=== PATIENT | female | born 1960 | race Caucasian/White ===

== ENCOUNTER 2023-08-16 10:00 | Outpatient (OUT) | payer MEDICARE, SELFPAY ==
[2023-08-16 10:22] LABS: Basophils Percent Auto 0.5 % (0.2-2.0); Eosinophils Absolute Auto 0.6 10^3/uL (0.0-0.7); Hematocrit 38.5 % (36.0-48.0); Hemoglobin 13.3 g/dL (12.0-16.0); Immature Granulocytes Abs Auto 0.01 10^3/uL (0.00-0.03); Immature Granulocytes Pct Auto 0.2 % (0.0-0.5); Lymphocytes Absolute Auto 1.6 10^3/uL (1.2-3.8); Lymphocytes Percent Auto 25.8 % (20.5-60.0); Mean Corpuscular HGB Conc 34.5 g/dL (29.9-35.2); Mean Corpuscular Hemoglobin 33.4 pg (26.7-34.0); Mean Corpuscular Volume 96.7 fL (81.0-99.0); Mean Platelet Volume 9.5 fL (9.5-13.5); Monocytes Absolute Auto 0.4 10^3/uL (0.3-0.8); Monocytes Percent Auto 6.5 % (1.7-12.0); Neutrophils Absolute Auto 3.6 10^3/uL (1.4-6.5); Platelet Count 258 10^3/uL (150-450); Red Blood Count 3.98 10^6/uL (4.20-5.40); Red Cell Distribution Width 11.8 % (11.0-15.0); White Blood Count 6.1 10^3/uL (4.0-11.0)
[2023-08-16 11:49] LABS: Anion Gap 12.8; BUN Creatinine Ratio 18.3; Calcium 8.7 mg/dL (8.5-10.1); Carbon Dioxide 28.7 mmol/L (21.0-32.0); Chloride 104 mmol/L (98-107); Estimated GFR (African America >60 (>=60); Estimated GFR (Non-African Ame >60 (>=60); Glucose 97 mg/dL (74-106); Potassium 4.5 mmol/L (3.5-5.1); Sodium 141 mmol/L (136-145)
== END 2023-08-16 10:01 | disposition home or self-care (01) ==
LOC: LAB 10:00
PROVIDERS: PCP Physician Assistant; Visit Provider Internal Medicine Interventional Cardiology
DX: Z01.818 Encounter for other preprocedural examination (principal)
CPT/HCPCS: 36415; 80048; 85025

== ENCOUNTER 2023-09-22 19:03 | Emergency (ER) | payer MEDICARE, SELFPAY ==
[2023-09-22] VITALS (16 sets, daily range): BP systolic 144–172; BP diastolic 73–106; PULSE 57–69; RESP 14–19; TEMP 36.7; O2SAT 98; BMI 29.4
--- OUTSIDE RECORDS SUMMARY | 2023-09-22 19:10 | XMS_ITS | CCD ---
Author Name Unknown Address [address] [place] [address] Organization [facility] Care Team Providers [employer] Name Role Phone NONE, XXXX Primary Care Physician Unavailab Tonya Hammer Referring Unavailable Tonya Gamble Admitting Unavailable Tonya Gamble Attending Unavailable HEMCHIO KOENIG Admitting Unavailable HEMCHIO KOENIG Attending Unavailable CHIO WISDOM Referring Unavailable HEMCHIO KOENIG Admitting Unavailable CHIO WISDOM Attending Unavailable INDERJIT Wisdom Primary Care Provider [phone] INDERJIT Wisdom Attending Provider DO Geovany Ling Referring Provider Geovany Ling Referring Unavailable Chio Wisdom Admitting Unavailable Chio Wisdom Primary Care Unavailable Chio Wsidom Attending Unavailable MINDYTAFRANCOIS BIRCH Attending Unavailable Medications Current Medications Medication Drug Class(es) Dates Sig (Normalized) Sig (Original) Calcium Citrate / Vitamin D (4 sources) Start: 11-15-2012 calcium-vitamin D Oral, Daily, Refill(s) 0, Prophylaxis Start Date: 11/15/12 Status: Ordered citalopram 10 mg oral tablet (4 sources) Serotonin Reuptake Inhibitor Start: 11-15-2012 take 1 tablet by mouth once daily CeleXA 10 mg Tab 10 mg = 1 tab(s), Oral, Daily, Refills(s) 0, Depression Start Date: 11/15/12 Status: Ordered Glucosamine & Chondroitin with MSM (4 sources) Start: 11-15-2012 take 1 tablet by mouth three times daily Glucosamine & Chondroitin with MSM 1 tab(s), Oral, TID, Refill(s) 0, Prophylaxis Start Date: 11/15/12 Status: Ordered [place]-3 (4 sources) Start: 11-15-2012 take 1000 mg by mouth once daily [place]-3 1,000 mg, Oral, Daily, Refill(s) 0, Prophylaxis Start Date: 11/15/12 Status: Ordered Problems Problem Classification Problem Date Documented Da te Episodic/Chronic Coronary atherosclerosis and other heart disease (2 sources) Other forms of angina pectoris; Translations: [Other forms of angina pectoris] Onset: 08-16-2023 Chronic Nonspecific chest pain (1 source) Chest pain, unspecified; Translations: [Chest pain, unspecified] Onset: 08-06-2023 Episodic Other screening for suspected conditions (not mental disorders or infectious disease) (2 sources) Abnormal result of other cardiovascular function study; Translations: [Abnormal result of other cardiovascular function study] Onset: 08-16-2023 Episodic Residual codes; unclassified (2 sources) Family history of ischemic heart disease and other diseases of the circulatory system; Translations: [Family history of ischemic heart disease and other diseases of the circulatory system] Onset: 08-16-2023 Episodic Results Test Name Value Interpretation Reference Range Facility Letter (Out)on 08-17-2023 Letter (Out) [id number] Daniella Glass 1960 Provider Department Center 08/17/2023 None-None [facility] AUTH NE Medical C Family History Problem Relation Age of Onset Coronary artery disease Mother Heart attack Father Family Status - Relation Status Age at Mother Father Normal [facility] Office Visiton 08-16-2023 Follow-up visit [id number] Daniella Glass 1960 Provider Department Center 08/16/2023 Dinah-FRANCOIS KUMARI BEN Schroeder Family History Problem Relation Age of Onset Coronary artery disease Mother Heart attack Father Family Status - Relation Status Age at Mother Father Level of Service:59041 MT OFFICE/OUTPATIENT NEW HIGH MDM 60-74 MINUTES Normal [facility] Orders Onlyon 08-16-2023 Orders Only [id number] Daniella Glass 1960 Date Provider Department Center 08/16/2023 STEFANO FAGAN BEN Sch[facility] Family History Problem Relation Age of Onset Coronary artery disease Mother Heart attack Father Family Status - Relation Status Age at Mother Father Normal [facility] NM alisa perf SPECT rest stron 08-07-2023 NM alisa perf SPECT rest str [facility] Main [address] [address] Nuclear Medicine Report Signed Patient: Daniella Glass MR#: [id number] : 1960 Acct:[id number] Age/Sex: 63 / F ADM Date: 08/06/23 Loc: EL [facility]: [facility] Att[facility] Dr: Chio Wisdom TRIAL JUDGE-C Copies to: ELLI Bocanegra MD Ordering Provider: Chio Wisdom PA-C Date of Service: 08/06/23 NM/NM alisa perf SPECT rest str: Abnormal EKG, chest pain REFERRING PHYSICIAN: Chio Wisdom NP REASON FOR STUDY: Abnormal EKG and chest pain. PROCEDURE: The patient underwent 2-day rest/stress protocol. Rest images obtained by injecting 29 mCi of Cardiolite. Stress images obtained by injecting 28.7 mCi of Cardiolite. Subsequently, gated SPECT and ejection fraction studies were performed. IMAGING RESULT: This appears to be a fair study. There is a very small mild reversible defect involving the distal anterolateral wall and apex suspicious of small area of mild distal anterolateral wall and apical ischemia. Left ventricular ejection fraction appears normal and calculated at 69%. TID index normal at 1.02. CONCLUSION: 1. Probable small mild ischemia of the distal anterolateral wall and apex. 2. No prior myocardial infarction. 3. Normal left ventricular systolic function and ejection fraction calculated at 69%. 4. No previous study available for comparison. Transcribed By: LEXY 08/07/23 1457 Dictated By: Niraj Davenport MD 08/07/23 1131 Signed By: 08/07/23 1741 Normal [facility] STR cardiac stress/lexiscano n 08-06-2023 STR cardiac stress/lexiscan [facility] Main [address] [address] Cardiac Stress Test Signed Patient: Daniella Glass MR#: [id number] : 1960 Acct:[id number] Age/Sex: 63 / F ADM Date: 08/06/23 Loc: EL Room: Type: REG CLI Attending Dr: Chio Wisdom TRIAL JUDGE-C Copies to: [facility] Niraj Davenport MD Ordering Provider: [facility] Date of Service: 08/06/23 STR/STR cardiac stress/lexiscan: R/o Ischemia REFERRING PHYSICIAN: Chio Wisdom PA-C REASON FOR STUDY: To assess for myocardial ischemia and ALEJANDRA patient complaining of chest pain. PROCEDURE: The patient underwent Lexiscan myocardial perfusion study. The patient was injected with 0.4 mg of Lexiscan, following which no symptoms reported. Blood pressure and heart response to Lexiscan was physiologic. Baseline ECG showed normal sinus rhythm. No ST-T changes. Following Lexiscan, no changes were seen. CONCLUSION: 1. Lexiscan Cardiolite stress test without diagnostic ST-T changes for ischemia. 2. No provoked chest pain or arrhythmia. 3. Appropriate hemodynamic response to Lexiscan. 4. Myocardial perfusion study will be dictated separately. Transcribed By: LEXY 08/06/23 1223 Dictated By: Niraj Davenport MD 08/06/23 1131 Signed By: 08/06/23 1343 [facility] BD Bone Density DEXAon 07-26 BD Bone Density DEXA Exam Date/Time: 07/25/2023 08:42 EST Reason for Exam: E28.39 Report IMPRESSION: BONE DENSITY IS WITHIN NORMAL LIMITS. The NOF/ISD guideline recommend FRAX for postmenopausal patients (not on treatment) if the lowest T-score for Spine(L1-L4), Femur Neck or Femur Total indicates low bone density (T score between -1.0 to -2.5, osteopenia). EXAM: BD Bone Density DEXA DATE: 07/25/2023 8:30 AM CLINICAL HISTORY: E28.39. COMPARISON: 01/27/2019. COMMENT: The lumbar spine and both hips were scanned. The mean bone mineral density from L1 to L4 is 1.206 g/cm2 and this value is 0.2 standard of deviation above the standard reference value for a young adult. Bone mineral density of the left femoral neck is 1.059 g/cm2 and this value is 0.2 standard of deviation above the standard reference value. Bone mineral density of the right femoral neck is 1.115 g/cm2 and this value is 0.6 standard of deviation above the standard reference value. These values are within the normal range. Compared to prior study, 2.6% increase in BMD of the lumbar spine, 6.4% decrease in BMD of the left femoral neck and 2.9% decrease in BMD of the right femoral neck. RECOMMENDATIONS: 1. All patients should optimize her calcium and vitamin D intake. 2. Consider FDA-approved medical therapies in postmenopausal women and minimal age 50 years and older, based on the following: - hip or vertebral (clinical or morphometric) fracture. - T-score less than or equal to -2.5 at the femoral neck or spine after the appropriate evaluation to exclude secondary causes. - Low bone density (T score between -1.0 and -2.5 at the femoral neck or spine) and a 10 year probability of hip fracture greater than or equal to 3% or a 10-year probability of a major osteoporosis-relate d fracture greater than or equal to 20% based on FRAX calculation. - Clinician judgment and/or patient preferences may indicate treatment for Report palpable attenuation fracture probability is above or below these levels. - Further guidance on treatment can be found at the National Osteoporosis Foundation's website: bonesource.org 3. Patients with diagnosis of osteoporosis or high risk for fracture. There are irregular bone mineral density tests. For patients eligible for Medicare, routine testing is allowed once every 2 years. Testing frequency can be increased to 1 year for patient's history of rapidly progressing disease, those who are receiving or discontinuing medical therapy to restore bone mass or have additional risk factors. Ordering Provider: , FINAL REPORT Dictated: 07/26/2023 4:58 pm Syed Brown MD Signed (Electronic Signature): 07/26/2023 4:58 pm Signed by: Syed Brown MD Transcribed by: PRIMITIVO Technologist: LAVERN Normal [facility] Consent for Treatmenton 07-11 Consent for Treatment [id number] 14#1.00TIFF Normal [facility] HCV RNA by PCR, Qn Rfx Genoo n 07-24-2023 HCV genotype SONAM+probe Nom COMMENT Invalid Interpretation Code [facility] Comment on above: Result Comment: Not indicated Performed at: [facility] [address] [place], [place] [id number] MD Alex Dos Santos Performed By: #### 2 754365, 2571416, 13193610, 3912105, 1319534830, 28651727, 7858624 #### [facility] Laboratory [address] [place] [address] HCV RNA SONAM+probe [Log units/Vol] COMMENT Invalid Interpretation Code [facility] Comment on above: Result Comment: Unab le to calculate result since non-numeric result obtained for component test. Performed By: #### 2 620957, 7512764, 76013720, 9301628, 4994943408, 89153620, 5961524 #### [facility] Laboratory [address] [place] [address] HCV RNA SONAM+probe Qn Not detected Invalid Interpretation Code [facility] Comment on above: Performed By: #### 2 036378, 4643583, 10153186, 7756349, 2852479869, 87819822, 1867430 #### [facility] Laboratory [address] [place] [address] Laboratory comment Rene (Report) Comment Invalid Interpretation Code [facility] Comment on above: Result Comment: The quantitative range of this assay is 15 IU/mL to 100 million IU/mL. Performed By: #### 2 712424, 9127043, 95519969, 4335317, 9297073898, 87586803, 4667530 #### [facility] [address] [place] [address] Physician Orderon 07-24-2023 Physician Order [id number] 1B#1.00TIFF Normal [facility] Auto Diffon 07-23-2023 Basophils/100 WBC (Bld) 0.3 % Normal 0.0-2.0 [facility] Comment on above: Order Comment: Order Added by Discern Expert. Performed By: #### 2 994564, 8497703, 29282709, 1574466, 8497698392, 56181265, 9775271 #### [facility] Laboratory [address] [place] [address] Basophils/Leukocytes Auto (Bld) [Pure # fraction] 0.0 E9/L Normal 0.0-0.2 [facility] Comment on above: Order Comment: Order Added by Discern Expert. Performed By: #### 2 816337, 5259489, 46209567, 7060261, 0727058383, 53740478, 2180577 #### [facility] Laboratory [address] [place] [address] Eosinophils/100 WBC (Bld) 10.6 % High 0.0-8.0 [facility] Comment on above: Order Comment: Order Added by Discern Expert. Performed By: #### 2 443707, 6787055, 53012803, 6058362, 1586079997, 12986743, 1295362 #### [facility] [address] [place] [address] Eosinophils/Leukocyte s Auto (Bld) [Pure # fraction] 0.6 E9/L High 0.0-0.5 [facility] Comment on above: Order Comment: Order Added by Discern Expert. Performed By: #### 2 472124, 0970142, 51515455, 6803845, 6657489673, 72699286, 4621251 #### [facility] [address] [place] [address] Lymphocytes/100 WBC (Bld) 25.8 % Normal 14.0-50.0 [facility] Comment on above: Order Comment: Order Added by Discern Expert. Performed By: #### 2 752210, 1315191, 14529764, 3756183, 1787133791, 03896282, 9806890 #### [facility] [address] [place] [address] Lymphocytes/Leukocyte s Auto (Bld) [Pure # fraction] 1.6 E9/L Normal 1.0-4.0 [facility] Comment on above: Order Comment: Order Added by Discern Expert. Performed By: #### 2 974224, 9463152, 98205421, 6996284, 6396032359, 97455548, 4016418 #### [facility] [address] [place] [address] Monocytes/100 WBC (Bld) 5.4 % Normal 4.0-14.0 [facility] Comment on above: Order Comment: Order Added by Discern Expert. Performed By: #### 2 994150, 5287780, 63966960, 0753164, 5936309349, 92687132, 2234249 #### [facility] Laboratory [address] [place] [address] Monocytes/Leukocytes Auto (Bld) [Pure # fraction] 0.3 E9/L Normal 0.2-1.0 [facility] Comment on above: Order Comment: Order Added by Discern Expert. Performed By: #### 2 928435, 6360617, 65107651, 2949228, 7403476643, 03631814, 4543429 #### [facility] Laboratory [address] [place] [address] Neutrophils/100 WBC (Bld) 57.9 % Normal 36.0-75.0 [facility] Comment on above: Order Comment: Order Added by Discern Expert. Performed By: #### 2 377354, 9196563, 79422902, 7660866, 7898822636, 41693492, 8838560 #### [facility] [address] [place] [address] Neutrophils/Leukocyte s Auto (Bld) [Pure # fraction] 3.5 E9/L Normal 2.0-7.5 [facility] Comment on above: Order Comment: Order Added by Discern Expert. Performed By: #### 2 721380, 9782995, 74046790, 2688896, 2356836259, 41892647, 3508907 #### [facility] [address] [place] [address] CBC w/ Auto Diffon 3 Erythrocyte distribution width (RBC) [Ratio] 12.6 % Normal 10.9-14.2 [facility] Comment on above: Performed By: #### 2 806013, 8685400, 80972141, 4659741, 3592889341, 71408610, 4174111 #### [facility] [address] [place] [address] Hematocrit (Bld) [Volume fraction] 40.6 % Normal 34.0-46.0 [facility] Comment on above: Performed By: #### 2 123507, 4760432, 18935927, 7644128, 9635550705, 95816157, 9600126 #### [facility] Laboratory [address] [place] [address] Hemoglobin (Bld) [Mass/Vol] 14.0 g/dL Normal 12.0-16.0 [facility] Comment on above: Performed By: #### 2 013366, 4805381, 26256627, 8219981, 9501631012, 41455043, 0257920 #### [facility] Laboratory [address] [place], [place] [address] MCH (RBC) [Entitic mass] 33.0 pg Normal 27.0-34.0 [facility] Comment on above: Performed By: #### 2 134878, 4190589, 94775738, 8523683, 9551257105, 59178756, 2861080 #### [facility] [address] [place] [address] MCHC (RBC) [Mass/Vol] 34.5 g/dL Normal 31.4-36.0 [facility] Comment on above: Performed By: #### 2 002412, 1284019, 29001579, 5895046, 9109478853, 67144246, 8420782 #### [facility] [address] [place] [address] MCV (RBC) [Entitic vol] 95.5 fL Normal 80.0-100.0 [facility] Comment on above: Performed By: #### 2 304070, 4124082, 35132960, 1350866, 4437113249, 29329499, 7514867 #### [facility] Laboratory [address] [place] [address] Platelet mean volume (Bld) [Entitic vol] 8.3 fL Normal 6.4-10.8 [facility] Comment on above: Performed By: #### 2 814216, 0783530, 07355911, 9217161, 2534669267, 58243331, 4928213 #### [facility] [address] [place] [address] Platelets (Bld) [#/Vol] 256.0 E9/L Normal 150.0-500.0 [facility] Comment on above: Performed By: #### 2 099017, 8717193, 65430153, 8297783, 2872758157, 43597743, 7042474 #### [facility] [address] [place] [address] RBC (Bld) [#/Vol] 4.2 E12/L Low 4.3-5.9 [facility] Comment on above: Performed By: #### 2 659452, 6998925, 12508825, 0650714, 5552815200, 70906263, 8014661 #### [facility] [address] [place] [address] WBC corrected for nucl RBC Auto (Bld) [#/Vol] 6.1 E9/L Normal 4.0-11.0 [facility] Comment on above: Result Comment: Slid e reviewed by BC. Performed By: #### 2 559712, 8799999, 83867118, 3498662, 2253747435, 17097626, 9678025 #### [facility] [address] [place] [address] CHEMISTRYOrdered By: SYSTEM SYSTEM on 07-23-2023 Albumin [Mass/Vol] 4.1 g/dL Normal 3.3 - 5.0 gm/dL [facility] Albumin/Globulin [Mass ratio] 1.4 {ratio} Normal 1.1 - 2.2 [facility] ALP [Catalytic activity/Vol] 94 [iU]/d Normal 21 - 98 Int._Unit/L [facility] ALT No additional P-5'-P [Catalytic activity/Vol] 19 [iU]/d Normal 6 - 46 Int._Unit/L [facility] Anion gap [Moles/Vol] 9 mmol/L Normal 6 - 16 mEq/L [facility] AST [Catalytic activity/Vol] 18 [iU]/d Normal 5 - 43 Int._Unit/L [facility] Bilirubin [Mass/Vol] 0.8 mg/dL Normal 0.0 - 1 .1 mg/dL [facility] Calcium [Mass/Vol] 9.3 mg/dL Normal 8.9 - 11. 1 mg/dL [facility] Chloride [Moles/Vol] 108 mmol/L Normal 101 - 1 11 mmol/L [facility] Cholesterol [Mass/Vol] 174 mg/dL Normal 120 - 200 mg/dL [facility] Cholesterol in HDL [Mass/Vol] 46 mg/dL Invalid Interpretation Code [facility] Comment on above: Interpretive Data: H DL > or equal to 60 mg/dL: Low cardiovascular risk HDL < 40 mg/dL : High cardiovascular risk Cholesterol in LDL [Mass/Vol] 110 mg/dL Normal <=129mg/dL [facility] Cholesterol in VLDL [Mass/Vol] 18 mg/dL Normal 7 - 40 mg/dL [facility] CO2 [Moles/Vol] 28 mmol/L Normal 21 - 31 mmol/L [facility] Creatinine [Mass/Vol] 0.7 mg/dL Normal 0.5 - 1.3 mg/dL [facility] GFR/1.73 sq M.predicted among non-blacks MDRD (S/P/Bld) [Vol rate/Area] 96 mL/min/1.73 m2 Normal >=59mL/min/1. 73 m2 [facility] Comment on above: Interpretive Data: C hronic kidney disease could be indicated at eGFR's of less than 60 mL/min/1.73m2. Kidney failure is indicated at less than 15 mL/min/1.73m2. Globulin (S) [Mass/Vol] 3.0 g/dL Normal 1.4 - 4.0 gm/dL [facility] Glucose [Mass/Vol] 97 mg/dL Normal 55 - 199 mg/dL [facility] Comment on above: Interpretive Data: I f this glucose result represents a fasting glucose, interpretation should refer to the following reference range: 55-99 mg/dL Potassium [Moles/Vol] 4.1 mmol/L Normal 3.5 - 5.3 mmol/L [facility] Protein [Mass/Vol] 7.1 g/dL Normal 6.0 - 7.8 gm/dL [facility] Sodium [Moles/Vol] 141 mmol/L Normal 135 - 145 mmol/L [facility] Triglyceride [Mass/Vol] 90 mg/dL Normal <=149mg/dL [facility] TSH Qn 1.48 m[IU]/L Normal 0.34 - 5.60 mcIU/mL [facility] Urea nitrogen [Mass/Vol] 18 mg/dL Normal 5 - 21 mg/dL [facility] Urea nitrogen/Creatinine [Mass ratio] 26 mg/mg High 10 - [facility] CMPon 07-23-2023 Albumin [Mass/Vol] 4.1 g/dL Normal 3.3-5.0 [facility] Comment on above: Performed By: #### 2 123057, 4228949, 31614440, 0639619, 5003007425, 51127047, 1403812 #### [facility] Laboratory [address] [place] [address] Albumin/Globulin (S) [Mass conc ratio] 1.4 Normal 1.1-2.2 [facility] Comment on above: Performed By: #### 2 006140, 8271032, 48470355, 1850465, 7144749395, 60566204, 6628322 #### [facility] Laboratory [address] [place] [address] ALP [Catalytic activity/Vol] 94 Int._Unit/L Normal 21-98 [facility] Comment on above: Performed By: #### 2 160961, 6692923, 47254115, 8914097, 8732283601, 50964114, 9714885 #### [facility] [address] [place] [address] ALT No additional P-5'-P [Catalytic activity/Vol] 19 Int._Unit/L Normal 6-46 [facility] Comment on above: Performed By: #### 2 034388, 6794495, 38820033, 1850287, 0361357549, 69117955, 7906830 #### [facility] [address] [place] [address] Anion gap [Moles/Vol] 9 mmol/L Normal 6-16 [facility] Comment on above: Performed By: #### 2 306942, 1677748, 40165316, 3248603, 4214337874, 19174646, 9228752 #### [facility] [address] [place] [address] AST [Catalytic activity/Vol] 18 Int._Unit/L Normal 5-43 [facility] Comment on above: Performed By: #### 2 941101, 4130863, 53661797, 4886704, 6843248866, 44647040, 4344047 #### [facility] [address] [place] [address] Bilirubin [Mass/Vol] 0.8 mg/dL Normal 0.0-1.1 [facility] Comment on above: Performed By: #### 2 186704, 6011538, 08484789, 4753992, 9931770121, 44187229, 5371894 #### [facility] [address] [place] [address] Calcium [Mass/Vol] 9.3 mg/dL Normal 8.9-11.1 [facility] Comment on above: Performed By: #### 2 542954, 5402267, 14849855, 8616540, 3956489283, 99940851, 4416862 #### [facility] [address] [place] [address] Chloride [Moles/Vol] 108 mmol/L Normal 101-111 [facility] Comment on above: Performed By: #### 2 511565, 2793245, 00472931, 4473969, 4719159815, 76707105, 4079647 #### [facility] [address] [place] [address] CO2 [Moles/Vol] 28 mmol/L Normal 21-31 [facility] Comment on above: Performed By: #### 2 542428, 6414512, 95523795, 4546341, 5076974614, 23926841, 6928863 #### [facility] [address] [place] [address] Creatinine [Mass/Vol] 0.7 mg/dL Normal 0.5-1.3 [facility] Comment on above: Performed By: #### 2 949128, 0706439, 03026715, 6197498, 7452645353, 15145202, 5100686 #### [facility] [address] [place] [address] Globulin (S) [Mass/Vol] 3.0 g/dL Normal 1.4-4.0 [facility] Comment on above: Performed By: #### 2 735952, 7081752, 60365935, 1112596, 6373015833, 70691927, 3494468 #### [facility] [address] [place] [address] Glucose [Mass/Vol] 97 mg/dL Normal 55-199 [facility] Comment on above: Result Comment: If t his glucose result represents a fasting glucose, interpretation should refer to the following reference range: 55-99 mg/dL Performed By: #### 2 951730, 0548522, 86467774, 1701155, 7091927285, 86690069, 2829788 #### [facility] [address] [place] [address] Potassium [Moles/Vol] 4.1 mmol/L Normal 3.5-5.3 [facility] Comment on above: Performed By: #### 2 911974, 8345286, 59231376, 8931678, 1377296716, 06727992, 8764412 #### [facility] [address] [place] [address] Protein [Mass/Vol] 7.1 g/dL Normal 6.0-7.8 [facility] Comment on above: Performed By: #### 2 940243, 2865833, 72168052, 5071598, 0560373414, 69782736, 4906727 #### [facility] [facility] [address] [place] [address] Sodium [Moles/Vol] 141 mmol/L Normal 135-145 [facility] Comment on above: Performed By: #### 2 [id number], [id number], [id number], [id number], [id number], [id number], [id number] #### [facility] [address] [place] [address] Urea nitrogen [Mass/Vol] 18 mg/dL Normal 5-21 [facility] Comment on above: Performed By: #### 2 390078, 1452466, [id number], 8344657, [id number], [id number], [id number] #### [facility] [address] [place] [address] Urea nitrogen/Creatinine [Mass ratio] 26 No Units High 10-20 [facility] Comment on above: Performed By: #### 2 355314, 3839726, [id number], 3186479, [id number], 29102477, [id number] #### [facility] [address] [place] [address] Consent for Treatmenton 07-11 Consent for Treatment [id number] 6E#1.00TIFF Normal [facility] HEMATOLOGYOrdered By: SYSTEM SYSTEM on 07-23-2023 Basophils/100 WBC (Bld) 0.3 % Normal 0.0 - 2.0 % [facility] Basophils/Leukocytes Auto (Bld) [Pure # fraction] 0.0 E9/L Normal 0.0 - 0.2 E9/L [facility] Eosinophils/100 WBC (Bld) 10.6 % High 0.0 - 8.0 % [facility] Eosinophils/Leukocyte s Auto (Bld) [Pure # fraction] 0.6 E9/L High 0.0 - 0.5 E9/L [facility] Lymphocytes/100 WBC (Bld) 25.8 % Normal 14.0 - 50.0 % [facility] Lymphocytes/Leukocyte s Auto (Bld) [Pure # fraction] 1.6 E9/L Normal 1.0 - 4.0 E9/L [facility] Monocytes/100 WBC (Bld) 5.4 % Normal 4.0 - 14.0 % [facility] Monocytes/Leukocytes Auto (Bld) [Pure # fraction] 0.3 E9/L Normal 0.2 - 1.0 E9/L [facility] Neutrophils/100 WBC (Bld) 57.9 % Normal 36.0 - 75.0 % [facility] Neutrophils/Leukocyte s Auto (Bld) [Pure # fraction] 3.5 E9/L Normal 2.0 - 7.5 E9/L [facility] HEMATOLOGYOrdered By: Amy Albarran on 07-23-2023 Erythrocyte distribution width (RBC) [Ratio] 12.6 % Normal 10.9 - 14.2 % [facility] Hematocrit (Bld) [Volume fraction] 40.6 % Normal 34.0 - 46.0 % [facility] Hemoglobin (Bld) [Mass/Vol] 14.0 g/dL Normal 12.0 - 16.0 gm/dL [facility] MCH (RBC) [Entitic mass] 33.0 pg Normal 27.0 - 34.0 pg [facility] MCHC (RBC) [Mass/Vol] 34.5 g/dL Normal 31.4 - 36.0 gm/dL [facility] MCV (RBC) [Entitic vol] 95.5 fL Normal 80.0 - 100.0 fL [facility] Platelet mean volume (Bld) [Entitic vol] 8.3 fL Normal 6.4 - 10.8 fL [facility] Platelets (Bld) [#/Vol] 256.0 E9/L Normal 150.0 - 500.0 E9/L [facility] RBC (Bld) [#/Vol] 4.2 E12/L Low 4.3 - 5.9 E12/L [facility] WBC corrected for nucl RBC Auto (Bld) [#/Vol] 6.1 E9/L Normal 4.0 - 11.0 E9/L [facility] Comment on above: Result Comment: Slid e reviewed by BC. Lipid Panelon 07-23-2023 Cholesterol [Mass/Vol] 174 mg/dL Normal 120-200 [facility] Comment on above: Performed By: #### 2 385300, 5963708, 92443434, 6810028, [id number], [id number], [id number] #### [facility] [address] [place] [address] Cholesterol in HDL [Mass/Vol] 46 mg/dL Invalid Interpretation Code [facility] Comment on above: Result Comment: HDL > or equal to 60 mg/dL: Low cardiovascular risk HDL < 40 mg/dL : High cardiovascular risk Performed By: #### 2 722046, 5610776, 75524040, 4125899, [id number], [id number], 3846326 #### [facility] [address] [place] [address] Cholesterol in LDL [Mass/Vol] 110 mg/dL Normal <=129 [facility] Comment on above: Performed By: #### 2 756838, 4900875, 12204131, 4558032, [id number], [id number], 0964793 #### [facility] [address] [place] [address] Cholesterol in VLDL [Mass/Vol] 18 mg/dL Normal 7-40 [facility] Comment on above: Performed By: #### 2 416570, 6515550, 51940385, 8326860, [id number], 42235717, 5847219 #### [facility] [address] [place] [address] Triglyceride [Mass/Vol] 90 mg/dL Normal <=149 [facility] Comment on above: Performed By: #### 2 090030, 7389018, 47968340, 6591107, [id number], 69312982, 5160811 #### [facility] [address] [place] [address] Physician Orderon 07-23-2023 Physician Order [id number]#1.00TIFF Normal [facility] TSH With T4fr Reflexon 07-23 TSH Qn 1.48 m[IU]/L Normal 0.34-5.60 [facility] Comment on above: Performed By: #### 2 136488, 8898615, 07244105, 6422776, [id number], 51822520, 4623245 #### [facility] [address] [place] [address] eGFRon 07-23-2023 GFR/1.73 sq M.predicted among non-blacks MDRD (S/P/Bld) [Vol rate/Area] 96 mL/min/1.73 m2 Normal >=59 [facility] Comment on above: Order Comment: Order added by Discern Expert. Result Comment: Customer Marketing Assistant taylor kidney disease could be indicated at eGFR's of less than 60 mL/min/1.73m2. Kidney failure is indicated at less than 15 mL/min/1.73m2. Performed By: #### 2 885120, 5513912, 07271384, 8829962, [id number], [id number], 7795129 #### [facility] [address] [place] [address] MA Mamm Screen w/CAD if perf and 3D Bilon 03-12-2023 MA Mamm Screen w/CAD if perf and 3D Andrew Exam Date/Time: 03/09/2023 08:17 EDT Reason for Exam: SCREENING Report IMPRESSION: BIRADS 1 NEGATIVE, NORMAL INTERVAL FOLLOW-UP. EXAMINATION: MA Mamm Screen w/CAD if perf and 3D Andrew CLINICAL HISTORY: SCREENING COMPARISON: Priors dating back to 2017. RESULT: Digital mammography and 3D tomosynthesis of bilateral breasts was performed. The breasts are heterogenously dense which may obscure small masses. There is no suspicious mass, asymmetry, architectural distortion, or calcification. CAD analysis was performed and used in the interpretation. Dense Breast: Yes Follow-up: 12 MONTH RECALL. Board Certified Radiologists. Accredited by the ACR and FDA. MAMMOGRAPHY IS VERY IMPORTANT TO YOUR HEALTH. THE [employer]IET[employer] GUIDELINES RECOMMEND THAT WOMEN 40 YEARS OF AGE AND OLDER SHOULD HAVE A MAMMOGRAM EVERY YEAR. A REMINDER LETTER WILL BE SENT AT THE APPROPRIATE TIME. THIS FACILITY UTILIZES A REMINDER SYSTEM TO ENSURE ALL PATIENTS RECEIVE REMINDER NOTIFICATIONS AT THE APPROPRIATE TIME BASED ON THE RECOMMENDATIONS OF THIS EXAM. THIS INCLUDES REMINDERS FOR ROUTINE SCREENING MAMMOGRAMS, DIAGNOSTIC MAMMOGRAMS IN WHICH THE PATIENT IS ASKED TO RETURN FOR ADDITIONAL VIEWS, OR OTHER BREAST IMAGING INTERVENTIONS WHEN APPROPRIATE. THE PATIENT WILL BE PLACED IN THE APPROPRIATE REMINDER SYSTEM INCLUDING A REMINDER AT THE APPROPRIATE TIME FOR ANY PENDING ADDITIONAL VIEWS. Ordering Provider: Tonya Gamble FINAL REPORT Dictated: 03/12/2023 2:36 pm Syed Brown MD Signed (Electronic Signature): 03/12/2023 2:36 pm Signed by: Syed Brown MD Transcribed by: PRIMITIVO Technologist: KAREN Assessment: BI-RADS Category 1-Negative Recommendation: Normal interval follow-up [facility] Consent for Treatmenton 02-10 Consent for Treatment [id number] A6#1.00CD:127 [facility] Physician Orderon 02-26-2023 Physician Order [id number] 5#1.00CD:127 [facility] Vital Signs Date Time Vital Sign Value Performing Clinician Sydni cifuentes 08-06-2023 10:15-0500 Diastolic blood pressure 91 mm[Hg] TRIAL JUDGE-C Chio Wisdom Work Phone: [facility] 08-06-2023 10:15-0500 Heart rate 67 /min TRIAL JUDGE-C Chio Quezadamer Work Phone: [facility] 08-06-2023 10:15-0500 Systolic blood pressure 138 mm[Hg] TRIAL JUDGE-C Chio Hemmer Work Phone: [facility] 08-06-2023 09:58-0500 Body height 177.8 cm TRIAL JUDGE-Maynak Quezadamer Work Phone: [facility] 08-06-2023 09:58-0500 Body weight 93.44 kg TRIAL JUDGE-C Chio Wisdom Work Phone: [facility] Encounters Encounter Date Encounter Type Care Provider Facility Start: 08-16-2023 End: 08-16-2023 ambulatory EHAB [facility] Start: 08-06-2023 End: 08-06-2023 ambulatory Geovany Ling Facility:[facility] Start: 08-06-2023 End: 08-06-2023 ambulatory TRIAL JUDGE-C Chio Quezadamer Work Phone: [facility] Work Phone: Start: 08-06-2023 End: 08-06-2023 Patient encounter procedure TRIAL JUDGE-C Chio Quezadamer Work Phone: [facility] Work Phone: Start: 07-25-2023 End: 07-26-2023 ambulatory CHIO WISDOM [place] [place]: 07-25-2023 End: 07-25-2023 Patient encounter procedure CHIO WISDOM [facility] Start: 07-23-2023 End: 07-24-2023 ambulatory CHIO WISDOM [place] [place] Start: 07-23-2023 End: 07-23-2023 Patient encounter procedure CHIO WISDOM [facility] Start: 03-09-2023 End: 03-10-2023 ambulatory Tonya Gamble [place] [place] Start: 03-09-2023 End: 03-09-2023 Patient encounter procedure Tonya Bakere [facility] Start: 03-06-2022 End: 03-06-2022 Patient encounter procedure Tonya Bakere [facility] Plan of Treatment Date Care Activity Detail Author Start: 08-06-2023 Radionuclide myocard ial perfusion stress study NM alisa perf SPECT rest & str [facility] Start: 08-06-2023 SPECT Heart perfusio n at rest and W stress and W radionuclide IV [facility] Immunizations Immunization Date Immunization Notes Care Provider Gasper camilo 04-14-2019 zoster vaccine recombinant Tonya Tye [facility] 02-04-2019 zoster vaccine, live Tonya Tye [facility] Payers Date Payer Category Payer Self-pay [id number] 2023 Unknown [id number] 1960 Unknown [id number] [id number] [id number] 1960 Unknown [id number] 2.16.8 [id number] 1960 Unknown [id number] 2.16.8 [id number] Unknown [employer] BC/BS [id number] Unknown [id number] 2.16.8 [id number] Social History Date Type Detail Facility Tobacco smoking status No Smokin g Status Entered [facility] Sex Assigned At Female [facility] Tobacco smoking status No Smokin g Status Entered [facility] Start: 1960 Sex Assigned At Female F [facility] Progress note 08-16-2023 Note Date & Type Note Facility 08-16-2023 Note [facility] Cardiology Clinic Note Chief Complaint: New patient here to establish care. Ref from Chio Wisdom CNP for abnormal stress test done at [facility]. She has no prior history. Mother and father both had CAD/ME. She has left-sided chest pain, which she describes as feeling like a pulled muscle . Denies SOB, palpitations, and LE edema. HPI: Daniella Glass is a 63 y.o. female With a family history of premature coronary artery disease; her mother at the age of 52, heart attack here for an abnormal stress test. Over the past several weeks, she has noticed retrosternal, left-sided chest pain that feels like a muscle pull . She initially thought it was related to episodic coughing beforehand. No precipitating or relieving factors. No associated shortness of breath. No orthopnea, no paroxysmal, dyspnea, no lower extremity edema. Her family physician ordered a stress test. This was abnormal. Cardiology ROS: Review of Systems Cardiovascular: Positive for chest pain. Musculoskeletal: Positive for arthritis. All other systems reviewed and are negative. Past Medical History She has no past medical history on file. Surgical History She has no past surgical history on file. Social History She has no history on file for tobacco use, alcohol use, and drug use. Family History No family history on file. Allergies Patient has no allergy information on record. Medications No current outpatient medications on file. Last Recorded Vitals BP 118/80 (BP Location: Left arm, Patient Position: Sitting) Pulse 64 Ht 1.778 m (5' 10 ) Wt 94.3 kg (208 lb) SpO2 97% BMI 29.84 kg/m??? Physical Examination: GENERAL: alert and oriented x3, well developed, in no acute distress. HEAD: atraumatic, normocephalic. EYES: NAY, EOMI. NECK: trachea midline, no JVD present, no carotid bruits present. CARDIAC: S1, S2 present. RRR. No murmur, rubs, or gallops. RESPIRATORY: CTAB, no increased effort of breathing, no rales, rhonchi, or wheezing. ABDOMEN: soft, nontender, nondistended. EXTREMITIES: no lower extremity edema, peripheral pulses are 2+ bilaterally. No rash/skin discoloration present. NEURO: strength/sensation equal and symmetric in bilateral upper and lower extremities. PSYCH: appropriate mood, affect, and judgement. Stress test 08/06/2023 Probable small, mild ischemia of the distal anterolateral wall and apex No prior myocardial infarction Normal left ventricular systolic function with an ejection fraction calculated at 69% No transient ischemic dilatation Assessment: Chest pain Family history premature coronary artery disease Abnormal stress test; Anterolateral and apical ischemia suspicious for LAD stenosis Plan: We discussed the options given her abnormal stress test; the patient is very concerned about any form of exercise given the abnormal stress test and her family history. While her pain sounds relatively atypical, we agreed to proceed with invasive coronary angiography. Will schedule her for coronary angiography via left radial approach in the coming 1 to 2 weeks. Further recommendations pending testing. Francois Kumari MD, MPH, [facility], [facility], [facility] Interventional Cardiology Pager Email: [email or web address] Evaluation + Plan note 07-23-2023 Note Date & Type Note Facility 07-23-2023 Evaluation + Plan note Diagnostic Tests PendingHCV RNA by PCR, Qn Rfx Ame 07/23/23 [facility] Evaluation + Plan note Note Date & Type Note Facility Evaluation + Plan note No data available for this section [facility] Evaluation note Note Date & Type Note Facility Evaluation note No assessment information availa [facility] Work Phone: Hospital Discharge instructions Note Date & Type Note Facility Hospital Discharge instructions No data available for this section [facility] Progress note Note Date & Type Note Facility Progress note No data available for this section [facility] Summary Purpose Family History No Family History Records Found Advance Directives No Advanced Directives Records Found Advance Directive Response Recorded Date/ Time Advance Directives No December 30, 019 5:01pm Chief Complaint and Reason for Visit Chief Complaint R94.31 R07.9 Additional Source Comments INFORMATION SOURCE (unrecogn ized section and content) DATE CREATED AUTHOR 07/26/2023 [facility] DATE CREATED AUTHOR AUTHOR'S ORGANIZ ATION 08/12/2023 [facility] DATE CREATED AUTHOR AUTHOR'S ORGANIZ ATION 08/18/2023 [facility] Care Teams (unrecognized sec tion and content) Team Status: Active Member Role Status Dates Chio Wisdom NP-Mayank Primary Care Provider Active Team Status: Inactive Member Role Status Dates INDERJIT An Primary Care Provider, Attending Baron aquino Active W Zack Ling DO Referring Provider Active Goals (unrecognized section and content) Goals may be documented in a n alternate section FOR RECORDS PERTAINING TO PATIENTS WHO ARE OR HAVE BEEN ENROLLED IN A CHEMICAL DEPENDENCY/SUBSTANCEABUSE PROGRAM, SOME INFORMATION MAY BE OMITTED. This clinical summary was aggregated from multiple sources. Caution should be exercised in using it in the provision of clinical care. This summary normalizes information from multiple sources, and as a consequence, information in this document may materially change the coding, format and clinical context of patient data. In addition, data may be omitted in some cases. CLINICAL DECISIONS SHOULD BE BASED ON THE PRIMARY CLINICAL RECORDS. [facility] [facility]. provides no warranty or guarantee of the accuracy or completeness of information in this document.
--- NOTE | 2023-09-22 19:16 | ECG_ITS ---
[facility] Test Date: 2023-09-22 Pat Name: CLAUDIA GLASS Department: Room: - Gender: Female Claim Technician: : 1960 Requested By: [id number] Order Number: [id number] Reading MD: GREG CALLOWAY Measurements Intervals [place] Rate: 57 P: 50 VA: 196 QRS: 77 QRSD: 84 T: 65 QT: 420 QTc: 414 Interpretive Statements 1100 Sinus rhythm 2420 RSR (QR) in lead V1/V2, consistent with right ventricular conduction delay 9130 borderline ECG No previous ECG available for comparison Electronically Signed On 09-23-2023 9:23:13 EST by GREG CALLOWAY
--- NOTE | 2023-09-22 19:16 | XR_ITS ---
The [address] [address] Patient Name: CLAUDIA GLASS MRN: [id number] date: 1960 Sex: F Assigned Patient Location: ER Current Patient Location: ER Accession/Order Number: [id number] Exam Date: 09/22/2023 19:45 Report Date: 09/22/2023 20:17 At the request of: CONSTANCE PRESSLEY Procedure: XR chest 1V EXAM: XR chest 1V HISTORY: HTN COMPARISON: None. TECHNIQUE: Single AP radiograph of the chest FINDINGS: No pneumothorax, pleural effusion or consolidation. Normal heart size. No acute osseous abnormality. XR/XR chest 1V IMPRESSION: No acute cardiopulmonary process. Electronically authenticated by: DEEPA KIDD Date: 09/22/2023 20:17
--- NOTE | 2023-09-22 19:18 | ED.GENADUL1 ---
HPI - General Adult General Chief complaint: Headache Stated complaint: HYPERTENSION, UNABLE TO GET LOWER Time Seen by Provider: 09/22/23 19:12 Source: patient Mode of arrival: walk-in History of Present Illness HPI narrative: 63 year old female presents to the ED for elevated blood pressure. States her BP was elevated last night when she checked it in the evening. It has continued to be elevated all day today. She checks her BP at home daily with her who has hx HTN. The patient does not take medication for her BP. Reports head pressure. Denies dizziness, vision changes, CP, SOB. Denies back and abd pain. Rates her pain 0/10. She has her BP log with her from the past few weeks. Her systolic BP typically runs between 130-155 and diastolic in the 80s. Related Data Home Medications Medication Instructions Recorded Confirmed citalopram 40 mg tablet mg 09/22/23 Previous Rx's Medication Instructions Recorded amlodipine 5 mg tablet (Norvasc) 5 mg PO DAILY #14 tabs 09/22/23 Allergies Allergy/AdvReac Type Severity Reaction Status Date / Time No Known Drug Allergies Allergy Verified 09/22/23 19:07 Review of Systems ROS Constitutional Denies: fever or chills Eyes Denies: change in vision or blurry vision Ears, nose, mouth, and throat Denies: neck pain Cardiovascular Denies: chest pain, palpitations or edema Respiratory Denies: shortness of breath or cough Gastrointestinal Denies: abdominal pain, nausea or vomiting Musculoskeletal Denies: back pain or neck pain Neurological Denies: numbness in extremities, weakness in extremities, lack of coordination, dizziness, confusion or slurred speech PFSH PFSH Social History Smoking status: Never smoker Exam Constitutional Vital Signs, click to edit/add: Last Vital Signs Temp 98.1 F 09/22/23 19:07 Pulse 60 09/22/23 21:00 Resp 19 09/22/23 21:00 BP 144/84 H 09/22/23 21:00 Pulse Ox 98 09/22/23 19:07 Common normals: no apparent distress and oriented x3 General appearance: cooperative; not ill appearing HENMT Nose: external nose normal Mouth: oral and palatal mucosa normal and lip normal Eye Common normals: PERRL, conjunctivae normal and no scleral icterus Neck & C-Spine Common normals: supple and no JVD Chest Chest: symmetrical chest wall rise Respiratory Common normals: normal respiratory effort Effort & inspection: able to speak in complete sentences and symmetric chest movement Auscultation: clear to auscultation bilaterally Cardio Common normals: regular rate and regular rhythm Neuro Common normals: oriented x3 and CN's II-XII intact bilaterally Sensorium/orientation: awake and alert Speech: speech normal Gait (neuro): normal gait Course Vital Signs Vital signs: Vital Signs Temperature 98.1 F 09/22/23 19:07 Pulse Rate 66 09/22/23 19:07 Respiratory Rate 16 09/22/23 19:07 Blood Pressure 172/106 H 09/22/23 19:07 Pulse Oximetry 98 09/22/23 19:07 Temperature 98.1 F 09/22/23 19:07 Pulse Rate 60 09/22/23 21:00 Respiratory Rate 19 09/22/23 21:00 Blood Pressure 144/84 H 09/22/23 21:00 Pulse Oximetry 98 09/22/23 19:07 Medical Decision Making MDM Narrative Medical decision making narrative: Laboratory studies were unremarkable. Imaging was negative for acute findings. She was given Hydralazine with improvement in her BP and head pressure. She has an appointment scheduled for follow up. A prescription was provided for Norvasc. Follow up with pcp for a recheck, furhter evaluation and treatment. Medical Records Medical records reviewed: Yes I reviewed the patient's medical records Lab Data Lab results reviewed: Yes I reviewed the patient's lab results Labs: Lab Results 09/22/23 Range/Units 19:30 WBC 8.0 (4.0-11.0) 10^3/uL RBC 4.45 (4.20-5.40) 10^6/uL Hgb 14.6 (12.0-16.0) g/dL Hct 42.2 (36.0-48.0) % MCV 94.8 (81.0-99.0) fL MCH 32.8 (26.7-34.0) pg MCHC 34.6 (29.9-35.2) g/dL RDW 11.6 (11.0-15.0) % Plt Count 285 (150-450) 10^3/uL MPV 9.4 L (9.5-13.5) fL Neut % (Auto) 56.8 (43.0-75.0) % Lymph % (Auto) 28.1 (20.5-60.0) % [place] % (Auto) 5.8 (1.7-12.0) % Eos % (Auto) 8.5 H (0.9-7.0) % Baso % (Auto) 0.5 (0.2-2.0) % Neut # (Auto) 4.5 (1.4-6.5) 10^3/uL Lymph # (Auto) 2.2 (1.2-3.8) 10^3/uL [place] # (Auto) 0.5 (0.3-0.8) 10^3/uL Eos # (Auto) 0.7 (0.0-0.7) 10^3/uL Baso # (Auto) 0.0 (0.0-0.1) 10^3/uL Abs Immat Gran (auto) 0.02 (0.00-0.03) 10^3/uL Imm/Tot Granulo (auto) 0.3 (0.0-0.5) % Sodium 141 (136-145) mmol/L Potassium 4.1 (3.5-5.1) mmol/L Chloride 104 (98-107) mmol/L Carbon Dioxide 27.4 (21.0-32.0) mmol/L Anion Gap 13.7 BUN 13.0 (7.0-18.0) mg/dL Creatinine 0.77 (0.55-1.02) mg/dL Est GFR ( Amer) >60 (>=60) Est GFR (Non-Af Amer) >60 (>=60) BUN/Creatinine Ratio 16.9 Glucose 96 (74-106) mg/dL Calcium 9.0 (8.5-10.1) mg/dL Troponin I High Sens 18.8 (4.0-51.3) pg/mL Imaging Data Chest x-ray: Attestation: I have reviewed the pertinent imaging results. Radiologist's impression: ITS Impressions Chest X-Ray 09/22/23 19:16 IMPRESSION: No acute cardiopulmonary process. Electronically authenticated by: DEEPA KIDD Date: 09/22/2023 20:17 Procedure: XR chest 1V EXAM: XR chest 1V HISTORY: HTN COMPARISON: None. TECHNIQUE: Single AP radiograph of the chest FINDINGS: No pneumothorax, pleural effusion or consolidation. Normal heart size. No acute osseous abnormality. XR/XR chest 1V IMPRESSION: No acute cardiopulmonary process. Electronically authenticated by: DEEPA KIDD Date: 09/22/2023 20:17 ECG Data Attestation: ?I have reviewed the pertinent ECG results. (EKG was reviewed by the attending physician. It showed sinus rhythm at a rate of [address] segment changes. ) Interpretation: Measurements Intervals [place] Rate: 57 P: 50 DE: 196 QRS: 77 QRSD: 84 T: 65 QT: 420 QTc: 414 Interpretive Statements 1100 Sinus rhythm 2420 RSR (QR) in lead V1/V2, consistent with right ventricular conduction delay 9130 borderline ECG No previous ECG available for comparison Discharge Plan Discharge Chief Complaint: Headache Clinical Impression: Elevated blood pressure reading Patient Disposition: Home, Self-Care Time of Disposition Decision: 20:48 Condition: Good Mode of Transportation: Private Vehicle Prescriptions / Home Meds: New amlodipine [Norvasc] 5 mg tablet 5 mg PO DAILY Qty: 14 0RF No Action citalopram 40 mg tablet Instructions: Hypertension (ED), Hypertension in the Older Adult (ED) Stand Alone Forms: Portal Instructions Referrals: DEBO WISDOM [Primary Care Provider] - As soon as possible Discharge Date/Time: 09/22/23 21:15
[2023-09-22 19:45] LABS: Basophils Percent Auto 0.5 % (0.2-2.0); Eosinophils Absolute Auto 0.7 10^3/uL (0.0-0.7); Eosinophils Percent Auto 8.5 % (0.9-7.0); Hematocrit 42.2 % (36.0-48.0); Hemoglobin 14.6 g/dL (12.0-16.0); Immature Granulocytes Abs Auto 0.02 10^3/uL (0.00-0.03); Immature Granulocytes Pct Auto 0.3 % (0.0-0.5); Lymphocytes Absolute Auto 2.2 10^3/uL (1.2-3.8); Lymphocytes Percent Auto 28.1 % (20.5-60.0); Mean Corpuscular HGB Conc 34.6 g/dL (29.9-35.2); Mean Corpuscular Hemoglobin 32.8 pg (26.7-34.0); Mean Corpuscular Volume 94.8 fL (81.0-99.0); Mean Platelet Volume 9.4 fL (9.5-13.5); Monocytes Absolute Auto 0.5 10^3/uL (0.3-0.8); Monocytes Percent Auto 5.8 % (1.7-12.0); Neutrophils Absolute Auto 4.5 10^3/uL (1.4-6.5); Neutrophils Percent Auto 56.8 % (43.0-75.0); Platelet Count 285 10^3/uL (150-450); Red Blood Count 4.45 10^6/uL (4.20-5.40); Red Cell Distribution Width 11.6 % (11.0-15.0)
[2023-09-22] MEDS: HYDRALAZINE HCL 20 MG/ML VIAL 10 MG IVP (19:55)
[2023-09-22 20:01] LABS: Anion Gap 13.7; BUN Creatinine Ratio 16.9; Carbon Dioxide 27.4 mmol/L (21.0-32.0); Chloride 104 mmol/L (98-107); Estimated GFR (African America >60 (>=60); Estimated GFR (Non-African Ame >60 (>=60); Glucose 96 mg/dL (74-106); Potassium 4.1 mmol/L (3.5-5.1); Sodium 141 mmol/L (136-145); Troponin I High Sensitivity 18.8 pg/mL (4.0-51.3)
== END 2023-09-22 21:15 | disposition home or self-care (01) ==
PROVIDERS: Nurse Practitioner Family; Emergency Provider Internal Medicine; PCP Physician Assistant
DX: R03.0 Elevated blood-pressure reading, without diagnosis of hypertension (principal); Z79.899 Other long term (current) drug therapy
CPT/HCPCS: 36415; 71045; 80048; 84484; 85025; 93005; 96374; 99285; J0360